=== PATIENT | female | born 1965 | race African-American/Black ===

== ENCOUNTER 2022-08-26 06:44 | Day surgery (SDC) | payer MEDICAID ==
[~2022-08-26] VITALS: Ht 157.5 cm; Wt 127.9 kg
[~2022-08-26 06:44] MED LIST: ALBUAER3 IN; ARIP1TAB5 PO; ASPI-543 PO; BUDEPOW XX; BUPR300T28 PO; CARV25TA55 PO; CLON0.2T PO; COLE1TAB5 PO; CYCL-839 PO; FURO40TA4 PO; GABA800T97 PO; HYDR-4798 PO; INSUINJ18 SC; IPRIH IN; LAMO100T44 PO; LOSA-39 PO; MECL25TA18 PO; NIFE1TAB30 PO; OMEG100078 PO; PANT40TA57 PO; PIOG15TA38 PO; PRO625LQ PO; ROSU40TA PO; SEMA4INJ SC
[2022-08-26] MEDS ORDERED: IOHEXOL 350 MG/ML 100ML IJ ONE ×2 (08:06→09:11)
[2022-08-26] MEDS ORDERED: HEPARIN IN NS 1000Units/500mL 1,500 ML ONE (08:06)
[2022-08-26] MEDS ORDERED: LIDOCAINE 2%HCL (LOCAL ANESTH.) INJ 20ML MDV ONE (08:06)
[2022-08-26] MEDS ORDERED: fentaNYL CITRATE 100 MCG/2 ML VL ONE (08:11)
[2022-08-26] MEDS ORDERED: ANGIOMAX 250 MG VIAL IV ONE (08:11)
[2022-08-26] MEDS ORDERED: HEPARIN SODIUM (PORCINE) 5000 UNITS/ML 1ML VIAL ONE (08:12)
[2022-08-26] MEDS ORDERED: SODIUM CHL 0.9% 0 ML ONE (08:12)
[2022-08-26] MEDS ORDERED: VERAPAMIL 2.5MG/ML INJ 2ML VIAL IV ONE (08:12)
[2022-08-26] MEDS ORDERED: MIDAZOLAM HCL 2MG/2ML 2ml VIAL (1mg/ml) ONE (08:12)
[2022-08-26] MEDS ORDERED: NITROGLYCERIN 5MG/ML 10ML VIAL IV ONE (08:17)
[2022-08-26] MEDS ORDERED: SODIUM CHL 0.9% 50 ML ONE (08:17)
== END 2022-08-26 11:46 | disposition home or self-care (01) ==
LOC: CATH 06:44
PROVIDERS: ATTEND Internal Medicine Cardiovascular Disease
DX: R94.39 Abnormal result of other cardiovascular function study (principal); I25.10 Atherosclerotic heart disease of native coronary artery without angina pectoris; I10 Essential (primary) hypertension; E11.9 Type 2 diabetes mellitus without complications; E78.5 Hyperlipidemia, unspecified; G62.9 Polyneuropathy, unspecified; E66.01 Morbid (severe) obesity due to excess calories; Z68.43 Body mass index [BMI] 50.0-59.9, adult; Z79.82 Long term (current) use of aspirin; Z91.040 Latex allergy status; Z88.0 Allergy status to penicillin; Z88.2 Allergy status to sulfonamides; Z79.4 Long term (current) use of insulin; Z79.891 Long term (current) use of opiate analgesic; Z79.899 Other long term (current) drug therapy; Z20.822 Contact with and (suspected) exposure to COVID-19
CPT/HCPCS: 93458; C1769; C1894; J1644; J2250; J3010; J3490; J7030; Q9967; U0003; 99152